=== PATIENT | female | born 1985 | race Caucasian/White ===

== ENCOUNTER → 2016-05-16 | Outpatient (CLI) | payer BC ==
--- NOTE | 2016-05-16 15:26 | US ---
EXAMINATION TYPE: US OB <= 14 wk fetus DATE OF EXAM: 05/16/2016 3:03 PM COMPARISON: NONE CLINICAL HISTORY: Z36 Confirm Dates,. Confirm Dates, pt has no other complaints at this time EXAM PERFORMED: Transabdominal (TA) EXAM MEASUREMENTS: GESTATIONAL AGE / DATING Physician Established: (11 weeks/6 days) EDC: 11/29/2016 Dates by LMP: (11 weeks/6 days) EDC: 11/29/2016 Dates by First Scan: No prior Dates by Current Scan for: (12 weeks/1 days) EDC: 11/27/2016 MATERNAL ANATOMY Uterus: 13.3 x 6.9 x 8.7 cm Right Ovary: 4.3 x 2.6 x 2.8 cm Left Ovary: 3.2 x 1.9 x 2.0 cm Post CDS / Adnexa: wnl Presence of free fluid: No Presence of corpus luteal cyst: Right Ovary= 2.2 x 1.9 x 2.4 cm Presence of subchorionic bleed: No GESTATION / SURVEY CRL: 5.5 cm (12 weeks/1 days) MSD: wnl Heart Rate: 167 bpm Rhythm: Normal IUP: Viable IUP Nuchal Translucency 10-14wks (normal less than 3mm): 1mm TECHNOLOGIST IMPRESSION: Single, viable IUP/ No abnormality seen at this time Single live intrauterine gestation is identified as gestational sac, yolk sac, and pole are see n. No free fluid is seen in pelvic cul-de-sac. Both ovaries are identified. Within the right ovary there is 2.4 cm peripheral oval hypoechoic lesion felt to reflect corpus luteal cyst. No suspicious extraovarian adnexal masses are noted bilaterally. IMPRESSION: Single live intrauterine gestation is confirmed, mean crown-rump length is 5.5 cm corresponding to 12 week 1 day old fetus.
[2016-05-16 15:48] LABS: CH 31.5; CHCM 34.2; HCT 38.2 % (34.0-46.0); HDW 2.57; MCH 31.4 pg (25.0-35.0); MCHC 33.9 g/dL (31.0-37.0); MCV 92.4 fL (80.0-100.0); Mean Platelet Volume 7.9; RBC 4.14 m/uL (3.80-5.40); RDW 13.2 % (11.5-15.5); WBC 13.3 k/uL (3.8-10.6)
[2016-05-16 16:04] LABS: Glucose 89 mg/dL (74-99); Non-African American GFR(MDRD) >60 (>60 ml/min/1.73 sqM)
[2016-05-16 16:33] LABS: Hepatitis B Surface Ag Index 0.08
[2016-05-19 16:29] LABS: HIV-1/HIV-2 Ab Screen NONREAC (NON REAC)
== END | disposition home or self-care (01) ==
LOC: RADUSWWP 14:48
PROVIDERS: ATTEND Obstetrics & Gynecology
DX: Z36 Encounter for antenatal screening of mother (principal); Z34.01 Encounter for supervision of normal first pregnancy, first trimester; Z3A.12 12 weeks gestation of pregnancy
CPT/HCPCS: 76801; 76813; 82565; 82947; 85027; 86762; 86780; 86850; 86900; 86901; 87340; 87389

== ENCOUNTER → 2016-07-11 | Outpatient (CLI) | payer BC ==
--- NOTE | 2016-07-11 14:18 | US ---
EXAMINATION TYPE: US OB anatomy transabd DATE OF EXAM: 07/11/2016 1:01 PM COMPARISON: NONE HISTORY: Large for Dates O36.62X0 TECHNIQUE: OBTA EXAM MEASUREMENTS: GESTATIONAL AGE / DATING Physician Established: (20 weeks/0 days) EDC: 11/28/2016 Dates by LMP: (19 weeks/6 days) EDC: 11/29/2016 Dates by First Scan: (20 weeks/1 days) EDC: 11/27/2016 Dates by Current Scan for: (19 weeks/5 days) EDC: 11/30/2016 SURVEY IUP: Single PLACENTA: Fundal PREVIA: No previa LUCI: 16.6 cm Normal CERVICAL LENGTH (transabdominal: norm > 3.0cm): 4.1 cm BIOMETRY PRESENTATION: Variable BPD: 4.7 cm 20 weeks / 1 days HC: 17.2 cm 19 weeks / 5 days AC: 15.4 cm 20 weeks / 5 days FL: 3.0 cm 19 weeks / 3 days ESTIMATED WEIGHT IN GRAMS: 328 grams ESTIMATED WEIGHT IN LBS/OZS: 0 lbs. 12 oz. WEIGHT PERCENTAGE BASED ON ESTABLISHED DATE: 47 % HC/AC: 1.1 Normal FL/AC: 19.6 Normal HEART RATE: 132 bpm RHYTHM: Normal ANATOMY SEEN (within normal limits): * Lateral Vent (< 1 cm) 0.5 cm * Cisterna Magna (< 1.1 cm) 0.4 cm * Nuchal Fold (< 0.6 cm) 0.3 cm * Cerebellum (varies with age) 2.0 cm Choroid Plexus (bilateral) Midline Falx Cavus Septi Pellucidi Four Chamber Heart Outflow tracts: LVOT/RVOT Stomach Situs Diaphragm Kidneys (bilateral) Bladder Cord Insert Three Vessel Cord Longitudinal Spine Transverse Spine Arms (bilateral) Legs (bilateral) ANATOMY NOT SEEN: Nose / Lips, due to lie IMPRESSION: Single viable intrauterine corresponding to ultrasound age 19 weeks 5 days with estimated d ate of delivery November by today's exam. Limited survey.
== END | disposition home or self-care (01) ==
LOC: RADUSWWP 10:49
PROVIDERS: ATTEND Obstetrics & Gynecology
DX: O36.62X0 Maternal care for excessive fetal growth, second trimester, not applicable or unspecified (principal); Z3A.19 19 weeks gestation of pregnancy
CPT/HCPCS: 76811

== ENCOUNTER → 2016-08-12 | Outpatient (CLI) | payer BC ==
[2016-08-12 12:02] LABS: CH 32.2; CHCM 34.9; HCT 36.3 % (34.0-46.0); HDW 2.79; HGB 12.5 gm/dL (11.4-16.0); MCHC 34.5 g/dL (31.0-37.0); MCV 92.9 fL (80.0-100.0); Mean Platelet Volume 7.3; RBC 3.91 m/uL (3.80-5.40); RDW 13.7 % (11.5-15.5)
== END | disposition home or self-care (01) ==
LOC: LABWHC1 10:22
PROVIDERS: ATTEND Obstetrics & Gynecology
DX: Z34.02 Encounter for supervision of normal first pregnancy, second trimester (principal); Z3A.00 Weeks of gestation of pregnancy not specified
CPT/HCPCS: 36415; 82950; 85027

== ENCOUNTER 2016-11-27 01:05 | Inpatient (IN) | payer BC ==
[2016-11-27] MEDS ORDERED: CARBOPROST TROMETHAMINE 250 MCG/ML 1 ML AMP IM PRN (02:06)
[2016-11-27] MEDS ORDERED: LIDOCAINE 1% (PF) 10 MG/ML (30 ML SDV) SQ PRN (02:06)
[2016-11-27] MEDS ORDERED: METHYLERGONOVINE 0.2 MG/ML 1 ML AMP IM PRN (02:06)
[2016-11-27] MEDS ORDERED: TERBUTALINE 1 MG/ML VIAL SQ PRN (02:06)
[2016-11-27] MEDS ORDERED: OXYTOCIN 10 UNIT/ML 1 ML VIAL IM PRN (02:06)
[2016-11-27] MEDS ORDERED: BUTORPHANOL 1 MG/ML 1 ML VIAL IV PRN (02:08)
[2016-11-27] MEDS ORDERED: OXYTOCIN 20 UNITS/1000 ML NS 1,000 ML IV SCH ×2 (02:15→07:43)
[2016-11-27 02:37] VITALS: BMI 28.0
[2016-11-27] MEDS: LACTATED RINGERS 1,000 ML IV SCH ×2 (02:37→05:00)
[2016-11-27 02:47] LABS: Basophils # (A) 0.1 k/uL (0-0.2); Basophils % (A) 0 %; CH 31.4; CHCM 34.9; Eosinophils # (A) 0.1 k/uL (0-0.7); Eosinophils % (A) 1 %; HCT 38.4 % (34.0-46.0); HGB 12.5 gm/dL (11.4-16.0); Luc # (Auto) 0.26; Luc % (Auto) 2; Lymphocytes % (A) 12 %; MCH 29.5 pg (25.0-35.0); MCHC 32.7 g/dL (31.0-37.0); MCV 90.4 fL (80.0-100.0); Mean Platelet Volume 9.3; Monocytes # (A) 0.8 k/uL (0-1.0); Monocytes % (A) 5 %; Neutrophils # (A) 12.9 k/uL (1.3-7.7); Neutrophils % (A) 80 %; RBC 4.25 m/uL (3.80-5.40); RDW 14.4 % (11.5-15.5); WBC 16.1 k/uL (3.8-10.6); WBC (Perox) 16.69
[2016-11-27] MEDS ORDERED: fentaNYL (PF) 50 MCG/ML 5 ML AMP ONE (04:32)
[2016-11-27] MEDS ORDERED: BUPIVACAINE (PF) 0.25% 30 ML VIAL ONE (04:32)
[2016-11-27] MEDS ORDERED: SODIUM CHLORIDE 0.9% 100 ML BAG ONE (04:32)
--- NOTE | 2016-11-27 06:09 | P.HPOB ---
History of Present Illness H&P Date: 11/27/16 Chief Complaint: Leaking of fluid and contractions. This patient is a pleasant 31-year-old 1 para 0 female estimated date of confinement 11/29/2016 estimated gestational age 39-5/7 weeks gestation who presents to labor and delivery with complaint of gush of fluid at about 10:30 last evening. Patient also has onset of contractions thereafter. care has been uncomplicated. Review of Systems Constitutional: Denies chills, Denies fever Ears, nose, mouth and throat: Denies headache, Denies sore throat Cardiovascular: Denies chest pain, Denies shortness of breath Respiratory: Denies cough Gastrointestinal: Reports heartburn Genitourinary: Reports Menstruation: Reports amenorrhea Past Medical History Past Medical History: No Reported History History of Any Multi-Drug Resistant Organisms: None Reported Additional Past Surgical History / Comment(s): Rhinoplasty, Chest tube, wisdom tooth extraction Past Anesthesia/Blood Transfusion Reactions: No Reported Reaction Past Psychological History: No Psychological Hx Reported Smoking Status: Never smoker Past Drug Use History: None Reported - Past Family History Mother Family Medical History: Hypertension Father Family Medical History: Diabetes Mellitus Additional Family Medical History / Comment(s): Type II Medications and Allergies Home Medications Medication Instructions Recorded Confirmed Type Pnv No.95/Ferrous Fum/Folic AC 1 each PO DAILY 11/27/16 11/27/16 History [ Multivitamin Tablet] Allergies Allergy/AdvReac Type Severity Reaction Status Date / Time No Known Allergies Allergy Verified 11/27/16 01:22 Exam - Vital Signs Vital signs: Vital Signs Temp Pulse Resp BP Pulse Ox 11/27/16 02:30 98.7 F 83 16 119/81 11/27/16 02:10 98.3 F 89 16 130/86 97 Intake and Output 11/26/16 11/26/16 11/27/16 14:59 22:59 06:59 Intake Total 1000 Balance 1000 Intake: Intake, IV Titration 1000 Amount Lactated Ringers 1,000 ml 1000 @ 125 mls/hr IV .Q8H [facility] Rx#:[id number] Other: Weight 86.183 kg Patient Weight 11/27/16 06:59 Weight 86.183 kg - OBG Physical Exam Abdomen: bowel sounds normal, no diffuse tenderness, no bruit present, no guarding noted, no hepatomegaly, no splenomegaly, no mass Vulva: both: normal Vagina: normal moisture, no discharge Cervix: Cervix is 7 cm dilated and she has gross rupture membranes. Cervix: no lesion, no discharge Uterus: enlarged (Fundal height is consistent with a term .) Results blood work shows she is A positive, rubella immune, RPR nonreactive, HIV nonreactive, hepatitis B is negative, Glucola was normal, group B strep was negative, ultrasounds have been normal. Result Diagrams: 11/27/16 02:30 Abnormal Lab Results - Last 24 Hours (Table) 11/27/16 Range/Units 02:30 WBC 16.1 H (3.8-10.6) k/uL Neutrophils # 12.9 H (1.3-7.7) k/uL Assessment and Plan (1) Normal labor Narrative/Plan: This is a pleasant 31-year-old 1 para 0 female 39-5/7 weeks gestation who is admitted to labor and delivery in active labor. Plan is anticipate normal vaginal delivery. Status: Acute
[2016-11-27] MEDS ORDERED: diphenhydrAMINE 50 MG/ML 1 ML VIAL IVP PRN (07:43)
[2016-11-27] MEDS ORDERED: Acetaminophen-Codeine 300-30mg TAB PO PRN ×2 (07:43)
[2016-11-27] MEDS ORDERED: LANOLIN CREAM 5 GM TUBE TOPICAL PRN (07:43)
[2016-11-27] MEDS ORDERED: WITCH HAZEL 1 EACH MED..PAD TOPICAL PRN (07:43)
[2016-11-27] MEDS ORDERED: ACETAMINOPHEN TAB 325 MG TAB PO PRN (07:43)
[2016-11-27] MEDS ORDERED: SIMETHICONE 80 MG CHEWABLE PO PRN (07:43)
[2016-11-27] MEDS ORDERED: diphenhydrAMINE 25 MG CAP PO PRN (07:43)
[2016-11-27] MEDS ORDERED: BENZOCAINE/MENTHOL SPRAY 1 GM/SPRAY AEROSOL TOPICAL PRN (07:43)
[2016-11-27] MEDS ORDERED: ZOLPIDEM 5 MG TAB PO PRN (07:43)
[2016-11-27] MEDS ORDERED: BISACODYL 10 MG SUPP RECTAL PRN (07:43)
[2016-11-27] MEDS ORDERED: HYDROCORTISONE 2.5% RECTAL CREAM 30 GM TUBE RECTAL PRN (07:43)
[2016-11-27] MEDS ORDERED: ceFAZolin 2 GM in SODIUM CHLORIDE 0.9% 100 ML IVPB ONE (07:58)
--- NOTE | 2016-11-27 08:02 | P.PROBDLV ---
Vaginal Delivery Note - . Vaginal Delivery Note: Normal spontaneous vaginal delivery viable female infant Apgars 8 and 9 delivery time is 0726 hours. Please see dictated H&P for intimate details of this patient's admission. In brief summary this is a pleasant 31-year-old 1 para 0 female 39-5/7 weeks gestation who is admitted to labor and delivery with spontaneous rupture of membranes in active labor. Patient does receive an epidural for pain control. Labor progresses normally and she gets to complete. Patient pushes the head to the perineum. She does have some bradycardia into the 90s and at this time a midline episiotomy is made. With good maternal effort we have controlled delivery of the infant's head over the perineum. Mouth and nares are bulb suctioned. There is a loose nuchal cord 1. With gentle downward traction we then have deliver the anterior and posterior shoulder and rest this 's body. This is a vigorous viable female infant Apgars are 8 and 9 delivery time is 0726 hours. Infant has spontaneous respirations and good cry and grossly appears normal. After delivery of the infant the umbilical cord is doubly clamped and cut appears to be trivascular. The placenta is then spontaneously delivered intact. Inspection of the perineum shows a fourth degree lacerations approximate 2 cm in length. A Gelpi is placed into the field. The rectal mucosa is easily identified and closed in 2 layers of 4-0 Vicryl suture. The rectal sphincter and sheath is again easily isolated with Allis clamps and then closed using interrupted 3-0 Vicryl 4. Excellent reapproximation is noted. Rest episiotomy is then closed with a 3-0 Vicryl running fashion the usual fashion. Final inspection shows no rectal sphincter or mucosal defects. Estimated blood loss is 150 mL. All counts are correct 3. I'm going to prophylactically give her a dose of antibiotics due to the fourth degree laceration. Infant and mother stable in delivery room.
[2016-11-27] MEDS: SENNOSIDES-DOCUSATE SODIUM 1 EACH TAB PO SCH ×2 (09:45→19:59)
[2016-11-27] MEDS: IBUPROFEN 600 MG TAB PO PRN ×2 (09:45→19:28)
[2016-11-28] MEDS: IBUPROFEN 600 MG TAB PO PRN ×2 (01:20→08:02)
--- NOTE | 2016-11-28 06:01 | P.PNOBGVD ---
Subjective - Subjective Patient reports: Reports appetite normal, Reports voiding normally, Reports pain well controlled, Reports ambulating normally : doing well Objective - Latest Vital Signs Latest vital signs: Vital Signs Temp Pulse Resp BP Pulse Ox 11/28/16 00:00 98.4 F 68 16 114/80 11/27/16 20:00 97.7 F 86 16 126/84 11/27/16 16:00 97.9 F 71 18 128/82 11/27/16 11:54 98.3 F 75 16 118/72 94 L 11/27/16 09:45 97.2 F L 99 16 137/78 11/27/16 09:15 83 16 125/60 11/27/16 08:45 100 16 125/57 11/27/16 08:40 78 16 126/71 11/27/16 08:25 97.8 F 85 16 126/62 11/27/16 08:10 88 16 155/97 11/27/16 07:55 86 16 100/60 Intake and Output 11/27/16 11/27/16 11/28/16 14:59 22:59 06:59 Intake Total 800 Balance 800 Intake: Oral 800 Other: # Voids 2 - Exam Lungs: bilateral: normal Chest: Normal S1, Normal S2 Extremities: Present: normal Abdomen: Present: normal appearance, soft Uterus: Present: normal, firm Assessment and Plan (1) Normal labor Narrative/Plan: Post day #1. Patient is resting without complaints. Vital signs are stable and she is afebrile. Uterus is firm nontender she's having normal lochia. My impression this is a normal course. Patient does plan to go home today is also baby is feeding well. I believe she is stable for discharge home. At this point will resume normal care. Current Visit: Yes Status: Acute Code(s): O80 - ENCOUNTER FOR FULL-TERM UNCOMPLICATED DELIVERY; Z37.9 - OUTCOME OF DELIVERY, UNSPECIFIED SNOMED Code(s ): 56074426
--- NOTE | 2016-11-28 06:05 | P.DS ---
Providers Date of admission: 11/27/16 01:43 Expected date of discharge: 11/28/16 Attending physician: Cristi Waddell Primary care physician: Cristi Waddell - Discharge Diagnosis(es) (1) Normal labor Current Visit: Yes Status: Acute Hospital Course: Please see dictated H&P for intimate details of this patient's admission. Brief summary this is a pleasant 31-year-old 1 para 0 female 39-5/7 weeks gestation admitted to labor and delivery in active labor. Patient quickly goes on to have a vaginal delivery viable female . Please see dictated delivery note. day #1 she is feeling well without complaints and wishes to go home. Patient's felt stable for discharge home follow up with me in 6 weeks. Procedures: Normal spontaneous vaginal delivery Patient Condition at Discharge: Good Plan - Discharge Summary New Discharge Prescriptions: New Acetaminophen-Codeine 300-30mg [Tylenol w/codeine #3] 1 - 2 each PO Q4HR PRN #30 tab PRN Reason: Mild Pain exceeding Tylenol Ibuprofen [Motrin] 600 mg PO Q6HR PRN #40 tab PRN Reason: Mild Pain Or Fever >= 100.5 No Action Pnv No.95/Ferrous Fum/Folic AC [ Multivitamin Tablet] 1 each PO DAILY Discharge Medication List Pnv No.95/Ferrous Fum/Folic AC [ Multivitamin Tablet] 1 each PO DAILY [History] Acetaminophen-Codeine 300-30mg [Tylenol w/codeine #3] 1 - 2 each PO Q4HR PRN # 30 tab 11/28/16 [Rx] Ibuprofen [Motrin] 600 mg PO Q6HR PRN #40 tab 11/28/16 [Rx] Follow up Appointment(s)/Referral(s): Cristi Waddell MD [Primary Care Provider] - 01/08/17 9:15 am Patient Instructions/Handouts: Vaginal Delivery (DC), Perineal Tear with Delivery (DC) Activity/Diet/Wound Care/Special Instructions: No intercourse or anything per vagina for 6 weeks. Please call if any fever, chills, excessive vaginal bleeding, and/or abdominal pain. Please take stool softener as we discussed. Discharge Disposition: HOME SELF-CARE
[2016-11-28] MEDS: SENNOSIDES-DOCUSATE SODIUM 1 EACH TAB PO SCH (08:02)
[2016-11-28 09:37] VITALS: BP 86/48; PULSE 79; RESP 14; TEMP 98.3
== END 2016-11-28 13:00 | disposition home or self-care (01) | DRG 774 ==
LOC: FBPOP 01:05 → 4FBP 01:43
PROVIDERS: ADMIT Obstetrics & Gynecology; ATTEND Obstetrics & Gynecology
PROC: 10E0XZZ Delivery of Products of Conception, External Approach (ICD-10-PCS; principal; 2016-11-27)
PROC: 0DQP0ZZ Repair Rectum, Open Approach (ICD-10-PCS; 2016-11-27)
DX: O69.81X0 Labor and delivery complicated by cord around neck, without compression, not applicable or unspecified (principal); O99.42 Diseases of the circulatory system complicating childbirth; O70.3 Fourth degree perineal laceration during delivery; R00.1 Bradycardia, unspecified; Z37.0 Single live birth; Z3A.39 39 weeks gestation of pregnancy; Z82.49 Family history of ischemic heart disease and other diseases of the circulatory system; Z83.3 Family history of diabetes mellitus
CPT/HCPCS: 59025; 84112; 85025; 88307; 99213

== ENCOUNTER → 2017-01-08 | Outpatient (CLI) | payer BC | END | disposition home or self-care (01) | LOC: LABWHC1 09:56 | PROVIDERS: ATTEND Obstetrics & Gynecology | DX: O99.280 Endocrine, nutritional and metabolic diseases complicating pregnancy, unspecified trimester (principal); E84.9 Cystic fibrosis, unspecified; Z3A.00 Weeks of gestation of pregnancy not specified | CPT/HCPCS: 36415; 81220 ==

== ENCOUNTER 2018-08-27 11:24 | Inpatient (IN) | payer BC ==
[2018-08-30] MEDS ORDERED: CARBOPROST TROMETHAMINE 250 MCG/ML 1 ML AMP IM PRN (17:50)
[2018-08-30] MEDS ORDERED: OXYTOCIN 10 UNIT/ML 1 ML VIAL IM PRN (17:50)
[2018-08-30] MEDS ORDERED: TERBUTALINE 1 MG/ML VIAL SQ PRN (17:50)
[2018-08-30] MEDS ORDERED: METHYLERGONOVINE 0.2 MG/ML 1 ML AMP IM PRN (17:50)
[2018-08-30] MEDS ORDERED: LIDOCAINE 0.5% (PF) 5 MG/ML (50 ML SDV) SQ PRN (17:50)
[2018-08-30] MEDS ORDERED: OXYTOCIN 30 UNITS/500 ML NS 30 UNIT in SALINE 1 500ML.BAG IV SCH (18:00)
[2018-08-31] MEDS ORDERED: CLINDAMYCIN 900 MG in DEXTROSE 5% IN WATER 50 ML IVPB SCH ×2 (06:00)
--- NOTE | 2018-08-31 06:05 | P.HPOB ---
History of Present Illness H&P Date: 08/31/18 Chief Complaint: Postdates induction. This patient is a pleasant 32-year-old 2 para 1 female estimated date of confinement 08/27/2018 estimated gestational age 40-4/7 weeks who presents to labor and delivery for requested induction of labor due to postdates . Patient's care has been uncomplicated. She did have a fourth degree laceration with her first for an 8 lbs. 10 oz. baby and I did have a long discussion with her and her about options for delivery this time and they've requested vaginal delivery. Patient is now postdates and requesting induction. Review of Systems Gastrointestinal: Reports heartburn Genitourinary: Reports Menstruation: Reports amenorrhea Past Medical History Past Medical History: No Reported History History of Any Multi-Drug Resistant Organisms: None Reported Additional Past Surgical History / Comment(s): Rhinoplasty, Chest tube, wisdom tooth extraction Past Anesthesia/Blood Transfusion Reactions: No Reported Reaction Past Psychological History: No Psychological Hx Reported Smoking Status: Never smoker Past Drug Use History: None Reported Additional History: Patient is a previous vaginal delivery baby girl. 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 I discussed testing was positive her . - Past Family History Mother Family Medical History: Hypertension Father Family Medical History: Diabetes Mellitus Additional Family Medical History / Comment(s): Type II Medications and Allergies Home Medications Medication Instructions Recorded Confirmed Type Pnv No.95/Ferrous Fum/Folic AC 1 each PO DAILY 11/27/16 11/27/16 History [ Multivitamin Tablet] Acetaminophen-Codeine 300-30mg 1 - 2 each PO Q4HR PRN #30 tab 11/28/16 Rx [Tylenol w/codeine #3] Ibuprofen [Motrin] 600 mg PO Q6HR PRN #40 tab 11/28/16 Rx Allergies Allergy/AdvReac Type Severity Reaction Status Date / Time No Known Allergies Allergy Verified 11/27/16 01:22 Exam - OBG Physical Exam Abdomen: bowel sounds normal, no diffuse tenderness, no bruit present, no guarding noted, no hepatomegaly, no splenomegaly, no mass Vulva: both: normal Vagina: normal moisture, no discharge Cervix: no lesion (Cervix in the office is 3 cm dilated.), no discharge Uterus: enlarged (Fundal height 39 cm) Results blood work shows she is A positive, rubella immune, RPR nonreactive, HIV nonreactive, hepatitis B negative, Glucola was normal, group B strep was positive, most recent ultrasound showed estimated weight of 5 lbs. 14 oz. Estimated weight is approximately half pounds today. Assessment and Plan Assessment: This is a pleasant 32-year-old 2 para 1 female 40-4/7 weeks gestation admitted to labor and delivery for requested postdates induction of labor. Patient also has a positive strep culture. Plan is antibiotic prophylaxis, induction of labor, and anticipate vaginal delivery. (1) Postmaturity , 40-42 weeks gestation Current Visit: Yes Status: Acute Code(s): O48.0 - POST-TERM S NOMED Code(s): 10473275000259 (2) Group B streptococcal carriage complicating Current Visit: Yes Status: Acute Code(s): O99.820 - STREPTOCOCCUS B CARRIER STATE COMPLICATING SNOMED Code(s): 362580940267435
[2018-08-31 06:17] VITALS: BMI 27.4
[2018-08-31] MEDS: LACTATED RINGERS 1,000 ML IV SCH ×3 (06:20→09:49)
[2018-08-31 06:32] LABS: Basophils % (A) 0 %; Eosinophils # (A) 0.1 k/uL (0-0.7); Eosinophils % (A) 1 %; HCT 38.2 % (34.0-46.0); HGB 12.7 gm/dL (11.4-16.0); Lymphocytes # (A) 2.4 k/uL (1.0-4.8); Lymphocytes % (A) 21 %; MCH 29.8 pg (25.0-35.0); MCHC 33.3 g/dL (31.0-37.0); MCV 89.6 fL (80.0-100.0); Monocytes # (A) 0.6 k/uL (0-1.0); Monocytes % (A) 5 %; Neutrophils # (A) 8.4 k/uL (1.3-7.7); Neutrophils % (A) 71 %; Platelet Count 130 k/uL (150-450); RBC 4.26 m/uL (3.80-5.40); RDW 14.4 % (11.5-15.5); WBC 11.8 k/uL (3.8-10.6)
[2018-08-31] MEDS ORDERED: fentaNYL (PF) 50 MCG/ML 5 ML AMP ONE (09:25)
[2018-08-31] MEDS ORDERED: SODIUM CHLORIDE 0.9% 100 ML BAG ONE (09:25)
[2018-08-31] MEDS ORDERED: ROPIVACAINE 5MG/ML 20ML VIAL ONE (09:25)
[2018-08-31] MEDS ORDERED: ROPIVACAINE 100 MG, fentaNYL (PF) 200 MCG in SODIUM CHLORIDE 0.9% 76 ML EPIDURAL ONE (10:03)
[2018-08-31] MEDS ORDERED: diphenhydrAMINE 50 MG/ML 1 ML VIAL IVP PRN ×2 (11:36)
[2018-08-31] MEDS ORDERED: diphenhydrAMINE 50 MG CAP PO PRN (11:36)
[2018-08-31] MEDS ORDERED: LANOLIN CREAM 5 GM TUBE TOPICAL PRN (11:36)
[2018-08-31] MEDS ORDERED: ZOLPIDEM 5 MG TAB PO PRN (11:36)
[2018-08-31] MEDS ORDERED: diphenhydrAMINE 25 MG CAP PO PRN (11:36)
[2018-08-31] MEDS ORDERED: ACETAMINOPHEN TAB 325 MG TAB PO PRN (11:36)
[2018-08-31] MEDS ORDERED: BENZOCAINE/MENTHOL SPRAY 1 GM/SPRAY AEROSOL TOPICAL PRN (11:36)
[2018-08-31] MEDS ORDERED: SIMETHICONE 80 MG CHEWABLE PO PRN (11:36)
[2018-08-31] MEDS ORDERED: WITCH HAZEL 1 EACH MED..PAD TOPICAL PRN (11:36)
[2018-08-31] MEDS ORDERED: HYDROCORTISONE 2.5% RECTAL CREAM 30 GM TUBE RECTAL PRN (11:36)
[2018-08-31] MEDS ORDERED: OXYTOCIN 20 UNITS/1000 ML NS 1,000 ML IV SCH (11:45)
--- NOTE | 2018-08-31 12:52 | P.PROBDLV ---
Vaginal Delivery Note - . Vaginal Delivery Note: Normal vaginal delivery viable female Apgars 8 and 9 delivery time is 1110 hrs. Please see dictated H&P for intimate details of this patient's admission. Brief summary this pleasant 32-year-old 2 para 1 female 40-4/7 weeks gestation admitted to labor and delivery for postdates induction of labor. Patient is admitted she is 4 cm dilated has artificial rupture membranes for clear fluid. Aber is induced with Pitocin per protocol. Patient's labor progresses and she does get an epidural for pain relief. Patient is to complete pushes the head to the perineum. Posterior perineum is supported we have controlled delivery of infant's head over the perineum. Mouth and nares are bulb suctioned. There is no evidence of a nuchal cord. Gentle downward traction we have delivery the anterior posterior shoulder and rest this infant's body. Is a vigorous viable female infant Apgars are 8 and 9 delivery time was 1110 hrs. After delivery of the the infant is late on the mother's abdomen and the corners adequate pulsating then clamped and cut. Placenta spontaneously delivered intact. Estimated blood loss is 150 mL. Second-degree midline laceration which is repaired with 3-0 Vicryl usual fashion good reapproximation is noted. Bilateral periurethral lacerations on require repair. and mother stable delivery room. All counts are correct 3.
[2018-08-31] MEDS: IBUPROFEN 600 MG TAB PO PRN ×2 (15:57→21:57)
[2018-08-31] MEDS: SENNOSIDES-DOCUSATE SODIUM 1 EACH TAB PO SCH (21:56)
--- NOTE | 2018-09-01 06:26 | P.PNOBGVD ---
Subjective - Subjective Patient reports: Reports appetite normal, Reports voiding normally, Reports pain well controlled, Reports ambulating normally : doing well Objective - Latest Vital Signs Latest vital signs: Vital Signs Temp Pulse Resp BP Pulse Ox 08/31/18 23:40 98.1 F 72 18 110/70 100 08/31/18 20:00 98.2 F 76 18 115/70 100 08/31/18 16:00 98.1 F 72 16 111/74 08/31/18 13:30 97.8 F 77 14 107/71 08/31/18 13:00 96.7 F L 70 14 114/57 08/31/18 12:30 57 L 14 94/56 08/31/18 12:15 67 14 91/54 08/31/18 12:00 97.4 F L 73 16 94/55 08/31/18 11:45 80 16 104/65 08/31/18 11:28 97.8 F 78 16 100/59 Intake and Output 08/31/18 08/31/18 09/01/18 14:59 22:59 06:59 Other: # Voids 1 - Exam Lungs: bilateral: normal Chest: Normal S1, Normal S2 Extremities: Present: normal Abdomen: Present: normal appearance, soft Uterus: Present: normal, firm - Labs Labs: Abnormal Lab Results - Last 24 Hours (Table) 08/31/18 Range/Units 06:05 WBC 11.8 H (3.8-10.6) k/uL Plt Count 130 L (150-450) k/uL Neutrophils # 8.4 H (1.3-7.7) k/uL Assessment and Plan Assessment: day #1. Patient is resting without complaints and wishes to go. Vital signs are stable she's afebrile. Uterus is firm nontender and she is having normal lochia. My impression this is a normal course. Plan is to continue routine care and discharge home later today. (1) Postmaturity , 40-42 weeks gestation Current Visit: Yes Status: Acute Code(s): O48.0 - POST-TERM SNOMED Code(s): 59889576003346 (2) Group B streptococcal carriage complicating Current Visit: Yes Status: Acute Code(s): O99.820 - STREPTOCOCCUS B CARRIER STATE COMPLICATING SNOMED Code(s): 592626558082499
--- NOTE | 2018-09-01 06:30 | P.DS ---
Providers Date of admission: 08/31/18 05:55 Expected date of discharge: 09/01/18 Attending physician: Cristi Waddell Primary care physician: Harley Devi - Discharge Diagnosis(es) (1) Postmaturity , 40-42 weeks gestation Current Visit: Yes Status: Acute (2) Group B streptococcal carriage complicating Current Visit: Yes Status: Acute Hospital Course: Please see dictated H&P for intimate details of this patient's admission. Brief summary this is a pleasant 32-year-old 2 para 1 female 40-4/7 weeks gestation admitted to labor and delivery for postdates induction of labor. Patient is admitted she is uncomplicated induction of labor was on have a vaginal delivery viable female infant. Please see dictated delivery note. day 1 patient wishes to go home felt be stable for discharge home follow up with me in 6 weeks. Procedures: Induction of labor and normal vaginal delivery Patient Condition at Discharge: Good Plan - Discharge Summary New Discharge Prescriptions: New Ibuprofen [Motrin] 600 mg PO Q6HR PRN #40 tab PRN Reason: Mild Pain Or Fever >= 100.5 No Action Pnv No.95/Ferrous Fum/Folic AC [ Multivitamin Tablet] 1 each PO DAILY Discharge Medication List Pnv No.95/Ferrous Fum/Folic AC [ Multivitamin Tablet] 1 each PO DAILY 11/27/16 [History] Ibuprofen [Motrin] 600 mg PO Q6HR PRN #40 tab 09/01/18 [Rx] Follow up Appointment(s)/Referral(s): Cristi Waddell MD [STAFF PHYSICIAN] - 10/12/18 10:15 am Patient Instructions/Handouts: Vaginal Delivery (DC) Activity/Diet/Wound Care/Special Instructions: No intercourse or anything per vagina for 6 weeks. Please call if any fever, chills, excessive vaginal bleeding, and/or abdominal pain. Discharge Disposition: HOME SELF-CARE
[2018-09-01] MEDS: IBUPROFEN 600 MG TAB PO PRN (06:53)
[2018-09-01] MEDS: SENNOSIDES-DOCUSATE SODIUM 1 EACH TAB PO SCH (07:24)
[2018-09-01 07:31] VITALS: BP 103/56; PULSE 51; RESP 16; TEMP 97.9
== END 2018-09-01 11:30 | disposition home or self-care (01) | DRG 807 ==
LOC: 4FBP 08-31 05:55
PROVIDERS: ADMIT Obstetrics & Gynecology; ATTEND Obstetrics & Gynecology
PROC: 0UQMXZZ Repair Vulva, External Approach (ICD-10-PCS; principal; 2018-08-31)
PROC: 3E0R3NZ Introduction of Analgesics, Hypnotics, Sedatives into Spinal Canal, Percutaneous Approach (ICD-10-PCS; principal; 2018-08-31)
PROC: 10E0XZZ Delivery of Products of Conception, External Approach (ICD-10-PCS; principal; 2018-08-31)
PROC: 0KQM0ZZ Repair Perineum Muscle, Open Approach (ICD-10-PCS; principal; 2018-08-31)
PROC: 00HU33Z Insertion of Infusion Device into Spinal Canal, Percutaneous Approach (ICD-10-PCS; principal; 2018-08-31)
DX: O70.1 Second degree perineal laceration during delivery (principal); Z37.0 Single live birth; O71.82 Other specified trauma to perineum and vulva; O99.820 Streptococcus B carrier state complicating pregnancy; O48.0 Post-term pregnancy; Z3A.40 40 weeks gestation of pregnancy
CPT/HCPCS: 85025; 86850; 86900; 86901

== ENCOUNTER → 2019-10-11 | Outpatient (CLI) | payer BC | END | disposition home or self-care (01) | LOC: LABWHC1 11:03 | PROVIDERS: ATTEND Pediatrics Pediatric Infectious Diseases | DX: Z11.59 Encounter for screening for other viral diseases (principal) | CPT/HCPCS: U0003; C9803 ==

== ENCOUNTER 2020-10-24 06:00 | Inpatient (IN) | payer BC ==
--- NOTE | 2020-10-24 06:00 | P.HPOB ---
History of Present Illness H&P Date: 10/24/20 Chief Complaint: Requested induction of labor This is a pleasant 35-year-old 3 para 2 female estimated date of confinement 10/29/2020 estimated gestational age 39-2/7 weeks who presents to labor and delivery for requested induction of labor. A sheets care is complicated by advanced for maternal age. He did not desire any genetic testing or referral to [facility], however she has been followed with growth ultrasounds and nonstress tests which have been normal. Patient did also have some mild thrombocytopenia and her most recent platelet count was 137. Patient also has a history of a positive group B strep this . Review of Systems Genitourinary: Reports Menstruation: Reports amenorrhea Past Medical History Past Medical History: No Reported History History of Any Multi-Drug Resistant Organisms: None Reported Additional Past Surgical History / Comment(s): Rhinoplasty, Chest tube, wisdom tooth extraction Past Anesthesia/Blood Transfusion Reactions: No Reported Reaction Past Psychological History: No Psychological Hx Reported Smoking Status: Never smoker Past Alcohol Use History: None Reported Past Drug Use History: None Reported - Past Family History Mother Family Medical History: Hypertension Father Family Medical History: Diabetes Mellitus Additional Family Medical History / Comment(s): Type II Medications and Allergies Home Medications Medication Instructions Recorded Confirmed Type Pnv No.95/Ferrous Fum/Folic AC 1 each PO DAILY 11/27/16 08/31/18 History [ Multivitamin Tablet] Ibuprofen [Motrin] 600 mg PO Q6HR PRN #40 tab 09/01/18 Rx Allergies Allergy/AdvReac Type Severity Reaction Status Date / Time Penicillins Allergy Rash/Hives Verified 08/31/18 06:00 Exam - OBG Physical Exam Abdomen: bowel sounds normal, no diffuse tenderness, no bruit present, no guarding noted, no hepatomegaly, no splenomegaly, no mass Vulva: both: normal Vagina: normal moisture, no discharge Cervix: no lesion (Cervix in the office is 3 cm dilated and uneffaced.), no discharge Uterus: enlarged (Normal limits 38 cm.) Results blood work shows she is A positive, rubella immune, RPR is nonreactive, hepatitis B was negative, Glucola was normal, group B strep was positive, ultrasounds have shown normal growth most recent ultrasound showed 5 lbs. 14 oz. most recent platelets were 137. Assessment and Plan Assessment: This is a pleasant 35-year-old 3 para 2 female 39-2/7 weeks gestation admitted to labor and delivery for requested induction of labor. Patient also has a history of positive group B strep and mild thrombocytopenia. We will check a CBC on admission administer IV antibiotics for group B strep prophylaxis. Plan is induction of labor and anticipate vaginal delivery. (1) 39 weeks gestation of Status: Acute Code(s): Z3A.39 - 39 WEEKS GESTATION OF SNOMED Code(s): 05531171 (2) Thrombocytopenia Status: Acute Code(s): D69.6 - THROMBOCYTOPENIA, UNSPECIFIED SNOMED Code(s): 855225907 (3) Group B streptococcal carriage complicating Status: Acute Code(s): O99.820 - STREPTOCOCCUS B CARRIER STATE COMPLICATING SNOMED Code(s): 627434364812807 (4) Elective induction of labor planned Status: Acute Code(s): GZU2709 - SNOMED Code(s): 077159673
[2020-10-24] MEDS ORDERED: CARBOPROST TROMETHAMINE 250 MCG/ML 1 ML AMP IM PRN (06:13)
[2020-10-24] MEDS ORDERED: LACTATED RINGERS 1,000 ML IV SCH (06:13)
[2020-10-24] MEDS ORDERED: METHYLERGONOVINE 0.2 MG/ML 1 ML AMP IM PRN (06:13)
[2020-10-24] MEDS ORDERED: TERBUTALINE 1 MG/ML VIAL SQ PRN (06:13)
[2020-10-24] MEDS ORDERED: OXYTOCIN 10 UNIT/ML 1 ML VIAL IM PRN (06:13)
[2020-10-24] MEDS ORDERED: OXYTOCIN 30 UNITS/500 ML NS 30 UNIT in SALINE 1 500ML.BAG IV SCH ×2 (06:13→11:11)
[2020-10-24] MEDS ORDERED: LIDOCAINE 0.5% (PF) 5 MG/ML (50 ML SDV) SQ PRN (06:13)
[2020-10-24] MEDS ORDERED: CLINDAMYCIN 900 MG in DEXTROSE 5% IN WATER 50 ML IVPB SCH ×2 (06:13)
[2020-10-24 06:34] LABS: Basophils % (A) 0 %; Eosinophils # (A) 0.1 k/uL (0-0.7); Eosinophils % (A) 1 %; HCT 36.8 % (34.0-46.0); HGB 12.4 gm/dL (11.4-16.0); Lymphocytes # (A) 2.3 k/uL (1.0-4.8); Lymphocytes % (A) 22 %; MCH 30.9 pg (25.0-35.0); MCHC 33.7 g/dL (31.0-37.0); MCV 91.7 fL (80.0-100.0); Mean Platelet Volume 9.3; Monocytes # (A) 0.6 k/uL (0-1.0); Monocytes % (A) 5 %; Neutrophils # (A) 7.1 k/uL (1.3-7.7); Neutrophils % (A) 69 %; Platelet Count 138 k/uL (150-450); Poikilocytosis Slight; RBC 4.02 m/uL (3.80-5.40); WBC 10.4 k/uL (3.8-10.6)
[2020-10-24] MEDS ORDERED: fentaNYL (PF) 50 MCG/ML 5 ML AMP ONE (08:15)
[2020-10-24] MEDS ORDERED: SODIUM CHLORIDE 0.9% 100 ML BAG ONE (08:15)
[2020-10-24] MEDS ORDERED: ROPIVACAINE 5MG/ML 20ML VIAL ONE (08:15)
[2020-10-24] MEDS ORDERED: ZOLPIDEM 5 MG TAB PO PRN (11:11)
[2020-10-24] MEDS ORDERED: BENZOCAINE/MENTHOL SPRAY 1 GM/SPRAY AEROSOL TOPICAL PRN (11:11)
[2020-10-24] MEDS ORDERED: HYDROCORTISONE 2.5% RECTAL CREAM 30 GM TUBE RECTAL PRN (11:11)
[2020-10-24] MEDS ORDERED: LANOLIN CREAM 5 GM TUBE TOPICAL PRN (11:11)
[2020-10-24] MEDS ORDERED: SIMETHICONE 80 MG CHEWABLE PO PRN (11:11)
[2020-10-24] MEDS ORDERED: bisacodyL 10 MG SUPP RECTAL PRN (11:11)
[2020-10-24] MEDS ORDERED: diphenhydrAMINE 50 MG/ML 1 ML VIAL IVP PRN (11:11)
[2020-10-24] MEDS ORDERED: diphenhydrAMINE 25 MG CAP PO PRN (11:11)
--- NOTE | 2020-10-24 12:58 | P.PROBDLV ---
Vaginal Delivery Note - . Vaginal Delivery Note: Normal vaginal delivery viable female Apgars 9 and 9 delivery time is 1029 hrs. Please see dictated H&P for intimate details of this patient's admission. Brief summary this is a pleasant 35-year-old 3 para 2 female 39-2/7 weeks gestation admitted to labor and delivery for requested induction of labor. Patient is admitted she 4 centimeters dilated has antibiotic started for positive group B strep culture. Patient has Pitocin started per protocol and artificial rupture membranes for clear fluid. Patient's labor progresses she does get an epidural for pain control. Patient therefore progresses quickly gets to complete. She pushes the head to the perineum the posterior perineum is supported. Controlled delivery of the 's head over the intact perineum. Mouth and nares are bulb suctioned. There is no evidence of a nuchal cord. With gentle downward traction we then have deliver the anterior and posterior shoulder and rest this infant's body. Is a vigorous viable female infant Apgars 9 and 9 delivery time is 1029 hrs. After delivery of the the umbilical cords immediately clamped and cut due to the history of jaundice with previous babies. Placenta is then spontaneously delivered intact. Inspection of the perineum shows a first-degree laceration is repaired with 3-0 Vicryl usual fashion excellent reapproximation is noted.'s May blood loss from deliveries approximately 250 mL. She has an episode of atony response to Methergine. All counts are correct 3. There are no complications. and mother stable delivery room.
[2020-10-24] MEDS: IBUPROFEN 600 MG TAB PO PRN (19:19)
[2020-10-24] MEDS: SENNOSIDES-DOCUSATE SODIUM 1 EACH TAB PO PRN (19:19)
[2020-10-25] MEDS: IBUPROFEN 600 MG TAB PO PRN ×3 (04:04→21:47)
--- NOTE | 2020-10-25 06:11 | P.PNOBGVD ---
Subjective - Subjective Patient reports: Reports appetite normal, Reports voiding normally, Reports pain well controlled, Reports ambulating normally [place]: doing well, in NICU (Elevated bands on CBC) Objective - Latest Vital Signs Latest vital signs: Vital Signs Temp Pulse Resp BP Pulse Ox 10/25/20 04:00 97.8 F 82 16 100/65 10/24/20 20:00 98.5 F 87 16 121/90 10/24/20 16:00 98.0 F 78 18 117/76 98 10/24/20 12:49 98.0 F 69 18 111/67 99 10/24/20 12:19 71 18 113/83 10/24/20 11:49 97.8 F 71 18 115/63 98 10/24/20 11:34 75 18 116/70 99 10/24/20 11:19 77 18 107/56 10/24/20 11:04 75 18 104/57 10/24/20 10:49 98.0 F 72 18 110/59 98 10/24/20 06:28 97.9 F 74 16 129/81 100 Intake and Output 10/24/20 10/24/20 10/25/20 14:59 22:59 06:59 Intake Total 165.833 Output Total 250 Balance -84.167 Intake: Intake, IV Titration 165.833 Amount Oxytocin 30 Units/500 ml 165.833 Ns 30 unit In Saline 1 500ml.bag @ Per Protocol IV .Q0M [facility] Rx#:[id number] Output: Estimated Blood Loss 250 Other: # Voids 1 2 3 - Exam Lungs: bilateral: normal Chest: Normal S1, Normal S2 Extremities: Present: normal Abdomen: Present: normal appearance, soft Uterus: Present: normal, firm - Labs Labs: Abnormal Lab Results - Last 24 Hours (Table) 10/24/20 Range/Units 06:21 Plt Count 138 L (150-450) k/uL Assessment and Plan Assessment: day #1. Patient is doing well without complaints, however her baby is in the nursery for IV antibiotics due to elevated bands and positive group B strep culture. Baby appears to be doing well this time is being watched closely. Patient reports normal lochia. CBC is pending at this time. Uterus is firm nontender. Plan is to continue routine care, check a CBC. Most likely discharge home tomorrow. (1) 39 weeks gestation of Current Visit: No Status: Acute Code(s): Z3A.39 - 39 WEEKS GESTATION OF SNOMED Code(s): 04898961 (2) Thrombocytopenia Current Visit: No Status: Acute Code(s): D69.6 - THROMBOCYTOPENIA, UNSPECIFIED SNOMED Code(s): 617237676 (3) Group B streptococcal carriage complicating Current Visit: No Status: Acute Code(s): O99.820 - STREPTOCOCCUS B CARRIER STATE COMPLICATING SNOMED Code(s): 747632932216165 (4) Elective induction of labor planned Current Visit: No Status: Acute Code(s): YSZ4414 - SNOMED Code(s): 546665948
[2020-10-25] MEDS: ACETAMINOPHEN TAB 325 MG TAB PO PRN (08:13)
[2020-10-25 09:22] LABS: Basophils % (A) 0 %; Eosinophils # (A) 0.1 k/uL (0-0.7); Eosinophils % (A) 1 %; HGB 10.7 gm/dL (11.4-16.0); Lymphocytes # (A) 2.1 k/uL (1.0-4.8); Lymphocytes % (A) 19 %; MCH 31.2 pg (25.0-35.0); MCHC 33.5 g/dL (31.0-37.0); MCV 93.2 fL (80.0-100.0); Mean Platelet Volume 9.4; Monocytes # (A) 0.5 k/uL (0-1.0); Monocytes % (A) 5 %; Neutrophils # (A) 8.2 k/uL (1.3-7.7); Neutrophils % (A) 74 %; Platelet Count 139 k/uL (150-450); RBC 3.43 m/uL (3.80-5.40); RDW 13.6 % (11.5-15.5); WBC 11.2 k/uL (3.8-10.6)
[2020-10-25] MEDS: SENNOSIDES-DOCUSATE SODIUM 1 EACH TAB PO PRN (21:48)
[2020-10-26] MEDS: IBUPROFEN 600 MG TAB PO PRN (04:31)
--- NOTE | 2020-10-26 06:55 | P.PNOBGVD ---
Subjective - Subjective Patient reports: Reports appetite normal, Reports voiding normally, Reports pain well controlled, Reports ambulating normally : doing well Objective - Latest Vital Signs Latest vital signs: Vital Signs Temp Pulse Resp BP Pulse Ox 10/26/20 00:00 97.3 F L 69 16 105/65 10/25/20 16:00 98.1 F 83 18 122/72 98 10/25/20 08:00 98.1 F 76 18 106/64 99 Intake and Output 10/25/20 10/25/20 10/26/20 14:59 22:59 06:59 Intake Total 1200 800 Balance 1200 800 Intake: Oral 1200 800 Other: # Voids 2 2 4 - Exam Lungs: bilateral: normal Chest: Normal S1, Normal S2 Extremities: Present: normal Abdomen: Present: normal appearance, soft Uterus: Present: normal, firm - Labs Labs: Abnormal Lab Results - Last 24 Hours (Table) 10/25/20 Range/Units 08:08 WBC 11.2 H (3.8-10.6) k/uL RBC 3.43 L (3.80-5.40) m/uL Hgb 10.7 L (11.4-16.0) gm/dL Hct 32.0 L (34.0-46.0) % Plt Count 139 L (150-450) k/uL Neutrophils # 8.2 H (1.3-7.7) k/uL Assessment and Plan Assessment: day #2. Patient is resting without complaints. Babies continue to be on antibiotics until cultures come back negative. Vital signs are stable she is afebrile. CBC yesterday showed normal hemoglobin and platelets 139. I impression is a normal course. Plan is to continue routine care discharge home later today. (1) 39 weeks gestation of Current Visit: No Status: Acute Code(s): Z3A.39 - 39 WEEKS GESTATION OF SNOMED Code(s): 18219587 (2) Thrombocytopenia Current Visit: No Status: Acute Code(s): D69.6 - THROMBOCYTOPENIA, UNSPECIFIED SNOMED Code(s): 247040419 (3) Group B streptococcal carriage complicating Current Visit: No Status: Acute Code(s): O99.820 - STREPTOCOCCUS B CARRIER STATE COMPLICATING SNOMED Code(s): 695183921943388 (4) Elective induction of labor planned Current Visit: No Status: Acute Code(s): RFL2823 - SNOMED Code(s): 677654362
--- NOTE | 2020-10-26 07:01 | P.DS ---
Providers Date of admission: 10/24/20 06:00 Expected date of discharge: 10/26/20 Attending physician: Cristi Waddell Primary care physician: Harley Devi - Discharge Diagnosis(es) (1) 39 weeks gestation of Current Visit: No Status: Acute (2) Thrombocytopenia Current Visit: No Status: Acute (3) Group B streptococcal carriage complicating Current Visit: No Status: Acute (4) Elective induction of labor planned Current Visit: No Status: Acute Hospital Course: Please see dictated H&P for intimate details of this patient's admission. Brief summary this pleasant 35-year-old 3 para 2 female 39-2/7 weeks who presents to labor and delivery for induction of labor. Patient is admitted she is antibiotic prophylaxis secondary to positive group B strep culture. She is induction of labor quickly goes on have a vaginal delivery viable female . Please see dictated delivery note. day #2 she is felt to be stable for discharge home follow up with me in 6 weeks. Procedures: Induction of labor and normal vaginal delivery Patient Condition at Discharge: Good Plan - Discharge Summary New Discharge Prescriptions: New Ibuprofen [Motrin] 600 mg PO Q6HR PRN #30 tab PRN Reason: Mild Pain (Scale 1 To 3) No Action Pnv No.95/Ferrous Fum/Folic AC [ Multivitamin Tablet] 1 each PO DAILY Discharge Medication List Pnv No.95/Ferrous Fum/Folic AC [ Multivitamin Tablet] 1 each PO DAILY 11/27/16 [History] Ibuprofen [Motrin] 600 mg PO Q6HR PRN #30 tab 10/26/20 [Rx] Follow up Appointment(s)/Referral(s): Cristi Waddell MD [STAFF PHYSICIAN] - 12/05/20 11:15 am Patient Instructions/Handouts: Vaginal Delivery (DC) Activity/Diet/Wound Care/Special Instructions: No intercourse or anything per vagina for 6 weeks. Please call if any fever, chills, excessive vaginal bleeding, and/or abdominal pain Discharge Disposition: HOME SELF-CARE
[2020-10-26] MEDS: ACETAMINOPHEN TAB 325 MG TAB PO PRN ×2 (08:22→16:01)
[2020-10-26] MEDS: SENNOSIDES-DOCUSATE SODIUM 1 EACH TAB PO PRN (16:01)
[2020-10-26 16:27] VITALS: BP 102/68; PULSE 65; RESP 16; TEMP 98
== END 2020-10-26 18:30 | disposition home or self-care (01) | DRG 807 ==
LOC: 4FBP 06:00
PROVIDERS: ADMIT Obstetrics & Gynecology; ATTEND Obstetrics & Gynecology
PROC: 10E0XZZ Delivery of Products of Conception, External Approach (ICD-10-PCS; principal; 2020-10-24)
PROC: 0HQ9XZZ Repair Perineum Skin, External Approach (ICD-10-PCS; 2020-10-24)
PROC: 10907ZC Drainage of Amniotic Fluid, Therapeutic from Products of Conception, Via Natural or Artificial Opening (ICD-10-PCS; 2020-10-24)
PROC: 3E033VJ Introduction of Other Hormone into Peripheral Vein, Percutaneous Approach (ICD-10-PCS; 2020-10-24)
DX: O99.824 Streptococcus B carrier state complicating childbirth (principal); Z37.0 Single live birth; O99.113 Other diseases of the blood and blood-forming organs and certain disorders involving the immune mechanism complicating pregnancy, third trimester; O70.0 First degree perineal laceration during delivery; D69.6 Thrombocytopenia, unspecified; Z88.0 Allergy status to penicillin; Z3A.39 39 weeks gestation of pregnancy
CPT/HCPCS: 85025; 86850; 86900; 86901